=== PATIENT | female | born 1945 | race Caucasian/White ===

== ENCOUNTER 2021-03-26 16:27 | Outpatient (REF) | payer MEDICARE, SELFPAY ==
--- NOTE | ~2021-03-26 | XR_ITS ---
EXAMINATION: RIGHT HAND X-RAY CLINICAL INFORMATION: Trauma COMPARISON: None TECHNIQUE: 3 views right hand FINDINGS: There is a fracture through the base of the proximal phalanx of the fifth finger. There is a volar angulation of the proximal phalanx with respect to the base. No other fracture is seen. There is arthritis at the first CORRECTION joint with joint space narrowing and osteophyte formation. There is mild arthritis at the trapezoid trapezium scaphoid joints. Joint spaces are otherwise normal. There is soft tissue swelling adjacent to the fracture. XR/XR hand wrist RT IMPRESSION: Angulated fracture of the base of the proximal phalanx of the fifth finger.
== END 2021-03-26 16:28 | disposition home or self-care (01) ==
LOC: HO.HMGCX 16:27
PROVIDERS: PCP Internal Medicine; Visit Provider Nurse Practitioner Family
DX: S69.91XA Unspecified injury of right wrist, hand and finger(s), initial encounter (principal); X58.XXXA Exposure to other specified factors, initial encounter; Y93.9 Activity, unspecified; Y92.9 Unspecified place or not applicable; Y99.9 Unspecified external cause status
CPT/HCPCS: 73110; 73130

== ENCOUNTER 2021-04-06 09:39 | Outpatient (REF) | payer MEDICARE, SELFPAY ==
--- NOTE | ~2021-04-06 | XR_ITS ---
EXAMINATION: XR HAND, RIGHT CLINICAL INFORMATION: Fracture follow-up COMPARISON: Radiographs 03/26/2021 TECHNIQUE: PA, lateral, and oblique views of the right hand. FINDINGS: No significant change in the appearance or alignment of the angulated and displaced fracture of the base of the 5th proximal phalanx. 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 XR/XR hand RT min 3V IMPRESSION: No significant change in the appearance of the 5th proximal phalanx fracture.
== END 2021-04-06 09:40 | disposition home or self-care (01) ==
LOC: HO.XRAY 09:39
PROVIDERS: PCP Internal Medicine; Visit Provider Physician Assistant
DX: S62.601A Fracture of unspecified phalanx of left index finger, initial encounter for closed fracture (principal)
CPT/HCPCS: 73130; 99202

== ENCOUNTER 2021-04-10 07:35 | Day surgery (SDC) | payer MEDICARE, SELFPAY ==
[2021-04-10] VITALS (7 sets, daily range): BP systolic 122–164; BP diastolic 68–81; PULSE 60–77; RESP 16–18; TEMP 36.7–37; O2SAT 96–99; BMI 27.4
--- NOTE | ~2021-04-10 | FL_ITS ---
EXAMINATION: XR FLUOROSCOPY WITH IMAGES CLINICAL INFORMATION: Fracture fifth proximal phalanx. Follow-up. COMPARISON: Radiographs right hand 04/06/2021, 03/26/2021 TECHNIQUE: Fluoroscopy performed by Dr. Allison Odom. Fluoroscopy time: 0.8 minutes DAP: 22.35 mGycm2 Images: 5 FINDINGS: Fracture proximal aspect fifth proximal phalanx is reduced along with 2 metallic pins. Fracture fragments are in near-anatomic alignment. No dislocation or destructive process. Hardware intact. FL/FL guidance in OR IMPRESSION: Status post reduction fracture fifth proximal phalanx with fragments in near-anatomic alignment.
--- NOTE | 2021-04-10 11:20 | MHC.SHP ---
Pre-Procedural Eval Section B Chief Complaint: Right small finger proximal phalanx fracture Allergies: Allergies Allergy/AdvReac Type Severity Reaction Status Date / Time No Known Allergies Allergy Verified 04/10/21 11:08 Plan I have reviewed the history and physical and performed a pertinent physical examination on my patient. No changes have occurred unless specified.
--- NOTE | 2021-04-10 11:21 | W.PM.OPN ---
Operative Note Operative Note Date of Service: 04/10/21 Narrative: Operative Note Narrative: Preop diagnosis: 1. Right small finger proximal phalanx base fracture Postop diagnosis: Same Procedure: 1. Right small finger proximal phalanx base fracture closed reduction percutaneous pinning 2. Ulnar nerve block Surgeon: Allison Odom MD Anesthesia: General Findings: finger fracture Implants: 0.045 K-wires times 2 Tourniquet time: None EBL: Minimal Specimen: None Drains: None Complications: None Disposition: Brought to the recovery room in stable condition Plan: Follow-up in 10-14 days for a wound check, postop radiographs and for placement in a short-arm finger spica cast or splint Anticipate K-wire removal in 4 weeks based on interval bony healing Educate the patient that full fracture healing anticipated in approximately 8-12 weeks. Indications: The patient is 75 years old with right small finger proximal phalanx base fracture . The risks and benefits of operative treatment, including but not limited to risk of damage to blood vessels, nerves, tendons, infection, recurrence, delayed or nonunion of fracture, persistent pain or numbness, incomplete resolution of preoperative symptoms, or need for further surgery were discussed with the patient and they wished to proceed with surgery. Procedure: Once consent was obtained patient was brought back to the operating suite and placed in the operating table in a supine position. . Perioperative antibiotics and general anesthesia was administered by the anesthesia team. A tourniquet was applied to the proximal aspect of the right upper extremity and the limb was prepped and draped in a standard surgical fashion. Tourniquet was not inflated during the case. The FluoroScan was used during the case to assist with our fracture reduction and placement of all implants. A closed reduction was performed on the patient's right small finger proximal phalanx fracture. There is already some bony healing at the fracture site, but we were able to significantly improve the clinical alignment of the digit. I placed a 0.045 K-wire through the ulnar base of the right small finger proximal phalanx. This was then advanced across the fracture site and into the shaft. A 2nd 0.045 K-wire was similarly advanced through the radial base of the proximal phalanx, across the fracture site and into the shaft. Fracture alignment was assessed for both angular and rotational malalignment. Once satisfied with our fracture reduction and implant placement, the K-wires were bent and cut short and pin caps applied. Final fluoroscopic images were then obtained. The wounds were copiously irrigated with normal saline. An ulnar nerve block was then performed by infiltrating about the ulnar nerve at the wrist with some 1% lidocaine with epinephrine for postop pain control. A Sterile dressing and short volar splint extending to the forearm was applied. The patient appears to have tolerated the procedure well and with no complications. All digits were well vascularized at the conclusion of the case.
[2021-04-10] MEDS: ceFAZolin Sodium/Dextrose,Iso 2 GM/50 ML PIGGYBACK IV (11:52)
[2021-04-10] MEDS: Lactated Ringers 1,000 ML 50 ML IVCONT (12:00)
--- NOTE | 2021-04-10 13:27 | HO.ANESPROP2 ---
HPI - Anesthesia Eval Consult details Narrative: 75 yo female patient here for Right Closed Metacarpal ORIF vs ORIF of 5th proximal phalanx PMFSH Active Problems Active Problems: All Active Problems (Updated 04/10/21 @ 11:48 by Rosaline Hwang RN) Hand injury (Acute) Finger fracture, right (Acute) Fracture of fifth metacarpal bone of right hand (Acute) Past Medical History Medical History Depression GERD (gastroesophageal reflux disease) High blood pressure History of pulmonary embolism Hypothyroid Pneumonia Family History Family history of problems with anesthesia: No Surgical History Surgical History (Updated 04/10/21 @ 13:44 by Rica Mckeon) H/O colonoscopy History of back surgery History of Problems with Anesthesia: No Social History Social History (Updated 04/10/21 @ 13:45 by Rica Mckeon) Alcohol intake: current Patient Tobacco Use Status: Former Tobacco user Quit Date: 35 yrs ago Use of substances other than those prescribed or required for medical reasons: Yes Substance Use Type: Marijuana Substance Use Frequency: Weekly Last Used Substance: Days (ago) Are you DNR?: No Advance Directives: No Advance Directives Information Provided: Yes Current occupational status: retired Current occupation: rt hand Meds Allergies Allergy/AdvReac Type Severity Reaction Status Date / Time No Known Allergies Allergy Verified 04/10/21 11:08 Home Medications Medication Instructions Recorded Confirmed Last Taken Type amlodipine 5 mg tablet 5 mg PO BID 03/26/21 04/10/21 04:00 History fluocinonide 0.05 % topical cream appl TOPICAL 03/26/21 Unknown History levothyroxine 50 mcg tablet 50 mcg PO DAILY 03/26/21 Unknown History metoprolol succinate 100 mg 100 mg PO DAILY 03/26/21 Unknown History tablet,extended release 24 hr pantoprazole 40 mg tablet,delayed 40 mg PO DAILY 03/26/21 Unknown History release sertraline 50 mg tablet 50 mg PO DAILY 03/26/21 Unknown History Exam Exam Date and Time: April 10, 2021 1327 Height,Weight and Vital Signs: Height 5 ft 2 in Weight 68.039 kg Last Vital Signs Temp 98.1 F 04/10/21 11:24 Pulse 60 04/10/21 11:24 Resp 18 04/10/21 11:24 BP 164/79 H 04/10/21 11:24 Pulse Ox 97 04/10/21 11:24 Airway Mallampati Class: II (Torus palatinus) TM Dist: >3cm Neck ROM: Full Heart: RRR Lungs: CTAB Assessment and Plan Assessment Anesthesia Assessment: Anesthesia Plan Discussed and Chart Reviewed Final Anesthetic Review NPO: Yes ASA Class: II Final Preanesthetic Review: No Changes in Pt Med Stat, Meds/Allgs Chart Reviewed, Consent Obtained/Reviewed and Anes Risks/Benef Reviewed Patient Risk: Low Procedure Risk: Low Assessment/Block/Sedation in SS: Assess/Block/Sedation-SS Anesthetic Plan Anesthetic Plan: GA Disposition: Standard PACU
== END 2021-04-10 16:08 | disposition home or self-care (01) ==
PROVIDERS: PCP Internal Medicine; Visit Provider Orthopaedic Surgery
PROC: (CPT 26615; principal; 2021-04-10 12:30)
DX: S62.616A Displaced fracture of proximal phalanx of right little finger, initial encounter for closed fracture (principal); X50.1XXA Overexertion from prolonged static or awkward postures, initial encounter; Y93.9 Activity, unspecified; Y92.9 Unspecified place or not applicable; Y99.9 Unspecified external cause status
CPT/HCPCS: 26727; J0690; J1170; J2250; J2405; J3010

== ENCOUNTER 2021-04-23 08:59 | Outpatient (REF) | payer MEDICARE, SELFPAY ==
--- NOTE | ~2021-04-23 | XR_ITS ---
EXAMINATION: XR HAND, RIGHT CLINICAL INFORMATION: Pain in right hand. COMPARISON: Fracture base of proximal phalanx 1st digit. Status post ORIF. TECHNIQUE: 4 views of the right hand. FINDINGS: Proximal phalangeal fracture 5th digit has been reduced with 2 metallic pins in satisfactory alignment. No displacement or dislocation seen. The soft tissues are unremarkable. XR/XR hand RT min 3V IMPRESSION: Status post ORIF proximal phalanx proximal end 5th digit. No change compared to previous 04/10/2021 exam.
== END 2021-04-23 09:00 | disposition home or self-care (01) ==
LOC: HO.HOSX 08:59
PROVIDERS: Visit Provider Orthopaedic Surgery
DX: S62.616A Displaced fracture of proximal phalanx of right little finger, initial encounter for closed fracture (principal); X58.XXXA Exposure to other specified factors, initial encounter; Y93.9 Activity, unspecified; Y92.9 Unspecified place or not applicable; Y99.9 Unspecified external cause status; Z87.891 Personal history of nicotine dependence
CPT/HCPCS: 73130; 99212

== ENCOUNTER → 2021-04-24 10:46 | Outpatient (BNVA) | payer MEDICARE, SELFPAY | PROVIDERS: Visit Provider Physician Assistant ==

== ENCOUNTER 2021-05-09 10:19 | Outpatient (REF) | payer MEDICARE, SELFPAY ==
--- NOTE | ~2021-05-09 | XR_ITS ---
EXAMINATION: XR HAND, RIGHT CLINICAL INFORMATION: Right hand pain. COMPARISON: 04/23/2021 and studies dating back to 03/26/2021. TECHNIQUE: PA, lateral, and oblique views of the right hand. FINDINGS: There is osteopenia of visualized bones. There is no significant change in appearance of 2 pins traversing right 5th proximal phalanx fracture. There is degenerative joint disease seen involving the 1st carpometacarpal joint with narrowing of the joint space and marginal spurring and sclerosis. There is triscaphe joint degenerative change. XR/XR hand RT min 3V IMPRESSION: No significant change in appearance of a comminuted right 5th proximal phalanx fracture with [address] Significant degenerative change of the right wrist at the 1st carpometacarpal joint.
== END 2021-05-09 10:20 | disposition home or self-care (01) ==
LOC: HO.HOSX 10:19
PROVIDERS: Visit Provider Orthopaedic Surgery
DX: M79.641 Pain in right hand (principal); S62.616D Displaced fracture of proximal phalanx of right little finger, subsequent encounter for fracture with routine healing; X58.XXXD Exposure to other specified factors, subsequent encounter; I10 Essential (primary) hypertension; Z87.891 Personal history of nicotine dependence
CPT/HCPCS: 73130; 99212

== ENCOUNTER 2021-05-30 09:21 | Outpatient (REF) | payer MEDICARE, SELFPAY ==
--- NOTE | ~2021-05-30 | XR_ITS ---
EXAMINATION: XR HAND, RIGHT CLINICAL INFORMATION: Pain. COMPARISON: None TECHNIQUE: PA, lateral, and oblique views of the right hand. FINDINGS: There is loss of PIP, DIP, first carpometacarpal joint space without bony erosive changes. There is minimal periarticular spurring DIP joint second through fifth digits and first carpometacarpal joint. The MCP joints are preserved. No acute fracture or dislocation seen. There is mild osteopenia. The soft tissues are normal. XR/XR hand RT min 3V IMPRESSION: Degenerative arthritic changes right hand. There is no visible acute fracture or dislocation. There is mild osteopenia.
== END 2021-05-30 09:22 | disposition home or self-care (01) ==
LOC: HO.HOSX 09:21
PROVIDERS: Visit Provider Orthopaedic Surgery
DX: S62.616D Displaced fracture of proximal phalanx of right little finger, subsequent encounter for fracture with routine healing (principal)
CPT/HCPCS: 73130; 99212

== ENCOUNTER 2021-05-31 10:00 | Outpatient (RCR) | payer MEDICARE, SELFPAY | END 2021-08-02 09:05 | disposition home or self-care (01) | LOC: HO.OT 10:00 | PROVIDERS: Visit Provider Orthopaedic Surgery | DX: S62.616D Displaced fracture of proximal phalanx of right little finger, subsequent encounter for fracture with routine healing (principal) | CPT/HCPCS: 97110; 97165; 97760 ==

== ENCOUNTER 2023-07-28 11:40 | Outpatient (REF) | payer MEDICARE, SELFPAY ==
--- NOTE | ~2023-07-28 | XR_ITS ---
EXAMINATION: XR SINUSES CLINICAL INFORMATION: Sinusitis COMPARISON: None available. TECHNIQUE: 4 views of the facial sinuses FINDINGS: Slight opacification of the left maxillary sinus. Remaining facial sinuses appear patent without large opacification. Osseous structures are intact. Dental hardware is noted. Soft tissues are unremarkable. XR/XR sinus min 3V IMPRESSION: Slight opacification of the left maxillary sinus.
== END 2023-07-28 11:41 | disposition home or self-care (01) ==
LOC: HO.XRAY 11:40
PROVIDERS: PCP Internal Medicine; Visit Provider Otolaryngology
DX: J32.9 Chronic sinusitis, unspecified (principal)
CPT/HCPCS: 70220

== ENCOUNTER 2023-08-20 07:34 | Outpatient (REF) | payer MEDICARE, SELFPAY ==
--- NOTE | ~2023-08-20 | CT_ITS ---
CT SINUS WITHOUT CONTRAST HISTORY: Deviated septum TECHNIQUE: CT images of the paranasal sinuses were acquired without contrast. This CT examination was performed using dose optimization techniques as appropriate, variously including the following: *Automated exposure control *Adjustment of mA and/or kV according to patient size (this includes techniques or standardized protocols for targeted exams where dose is matched to indication/reason for exam; i.e. extremities or head) *Use of iterative reconstruction technique DLP: 86.91 mGy-cm COMPARISON: None available FINDINGS: NASAL CAVITY: Leftward nasal septal deviation. The nasal cavity is well aerated. The olfactory fossa are symmetric with Keros type III morphology. FRONTAL SINUS: LEFT: Clear with focally opacified frontal sinus drainage pathway superiorly. Anterior and posterior accessory frontal recess air cells are noted. RIGHT: Clear with focally opacified frontal sinus drainage pathway superiorly. Prominent agger nasi cell. MAXILLARY SINUS: LEFT: Mild mucosal disease with opacified sinus ostium and otherwise patent osteomeatal unit. RIGHT: Mild mucosal disease with focally opacified sinus ostium and otherwise patent ETHMOID AIR CELLS: LEFT: Mild patchy mucosal disease. RIGHT: Mild patchy mucosal disease. Lamina papyracea: Intact. Anterior ethmoid canals do not traverse through the ethmoid air cells. SPHENOID SINUS: LEFT: Trace mucosal disease with septation traversing the ostium. Patent sphenoethmoidal recess. RIGHT: Mild mucosal disease with opacified ostium patent sphenoethmoidal recess. The sphenoid septum does not insert onto the carotid canal. Sphenoethmoidal (Onodi) cell: None. OTHER: Prominent torus palatini. Lens extractions. The carotid canals are covered by bone. The temporomandibular joints are normal. The mastoid air cells and middle ear cavities are well aerated. Partially imaged moderate global cerebral volume loss. Calcific plaque along the carotid siphons. Degenerative changes across the anterior atlantodental interval with mild retrodental ligamentous thickening/pannus. CT/CT sinus wo IV con IMPRESSION: Leftward nasal septal deviation. Mild scattered paranasal sinus mucosal disease, most pronounced in the maxillary sinuses with opacified bilateral sinus ostia. No air-fluid levels.
== END 2023-08-20 07:35 | disposition home or self-care (01) ==
LOC: HO.CT 07:34
PROVIDERS: Visit Provider Otolaryngology
DX: J84.2 Lymphoid interstitial pneumonia (principal)
CPT/HCPCS: 70486

== ENCOUNTER 2025-06-20 09:52 | Outpatient (AMB) | payer MEDICARE, SELFPAY ==
--- OUTSIDE RECORDS SUMMARY | 2025-06-20 10:38 | XMS_ITS | Clinical Summary ---
Author Organization [facility] Address [address] [place] [address] Phone Care Team Providers Care Operations Support Representative Name Role Phone Yemi Faith MD Primary Care Provider Allergies No known active allergies Medications diphenhydrAMINE (BenadryL) 25 mg capsule Take by mouth as needed Active amLODIPine (NORVASC) 5 mg tablet Take 1 tablet (5 mg total) by mouth 2 (two) times a day. 09/15/2023 Active aspirin 81 mg EC tablet Take 1 tablet (81 mg total) by mouth 1 (one) time each day. 09/15/2023 Active atorvastatin (LIPITOR) 80 mg tablet Take 1 tablet (80 mg total) by mouth 1 (one) time each day. 07/09/2024 Active ipratropium-albu teroL (Combivent Respimat) 20-100 mcg/actuation inhaler Inhale 1 puff by mouth 4 (four) times a day if needed (dyspnea). 07/01/2024 Active levothyroxine sodium (TIROSINT) 50 mcg capsule Take by mouth Active metoprolol succinate (TOPROL-XL) 100 mg 24 hr tablet Take 1 tablet (100 mg total) by mouth 1 (one) time each day. Active pantoprazole (PROTONIX) 40 mg EC tablet Take 1 tablet (40 mg total) by mouth 1 (one) time each day. Active sertraline (ZOLOFT) 100 mg tablet Take 1 tablet (100 mg total) by mouth 1 (one) time each day. Active Active Problems Problem Noted Date Diagnosed Date Osteoporosis 08/16/2024 Diastolic dysfunction 06/30/2024 Overview (08/16/2024): Last Assessment & Plan: The patient has a history of diastolic dysfunction. Echocardiogram done in November 2023 showed a normal LVEF, grade 2 LV diastolic dysfunction, and mild pulmonary hypertension with a pulmonary artery systolic pressure of 41 mmHg. The patient denies any heart failure symptoms. She denies any weight gain, lower extremity edema, orthopnea, PND, or dyspnea. Therefore, no need for diuretic therapy at this point. Paraesophageal hernia 06/30/2024 Overview (08/16/2024): Last Assessment & Plan: The patient was incidentally noted to have a moderate to large type III paraesophageal hernia on her cardiac CT scan. The patient tells me that her primary care physician and her geophysical manager ([facility]) already know about her paraesophageal hernia. The patient will continue to follow with her primary care physician and geophysical manager regarding the management of her paraesophageal hernia. PFO (patent foramen ovale) 06/30/2024 Overview (08/16/2024): Last Assessment & Plan: The patient was noted to have a possible PFO on cardiac CT scan done in January 2024. A PFO was not noted on the patient's prior echocardiogram. The patient does not have any history of TIA or CVA. She is already on antiplatelet therapy with aspirin 81 mg orally daily. No further evaluation is needed for this incidentally noted PFO. Pulmonary hypertension (CMS/HCC V24, CMS/HCC V28 ) 12/30/2023 Overview (08/16/2024): Last Assessment & Plan: The patient was found to have mild pulmonary hypertension on her echocardiogram done in November 2023. She was noted to have a pulmonary artery systolic pressure of 41 mmHg. Previous PFT from October 2023 did not show any evidence of obstructive lung disease. However, she did have any slight improvement in the FEV1 post bronchodilators which could represent some component of reactive airway disease. Certainly, her mild pulmonary hypertension could be secondary to her underlying diastolic dysfunction. However, given her history of former smoker and her history of a pulmonary embolism in the past, we also need to consider an intrinsic pulmonary component of her pulmonary hypertension. As such, will refer the patient for an evaluation with the pulmonology service. Dyspnea 09/15/2023 Overview (08/16/2024): Last Assessment & Plan: The patient has been having symptoms of chronic exertional dyspnea. On today's visit, she states that her symptoms of dyspnea are slightly better when compared to her last visit to our office. However, her symptoms are still present. She denies any chest pain at rest or with exertion. Stress echocardiogram was submaximal and therefore the patient was referred for a cardiac CT scan. Cardiac CT scan scheduled for January 2024. On the other hand, she was noted to have mild pulmonary hypertension on echocardiography. She does have a history of a PE in the past as well as a history of former smoker. Will refer the patient for an evaluation with the pulmonology department. CAD (coronary artery disease) 09/10/2023 Overview (08/16/2024): Last Assessment & Plan: The patient has a history of coronary artery disease. Cardiac CT scan done in January 2024 showed a normal left main, normal circumflex, a less than 50% stenosis in the LAD with abnormal FFR, and a less than 25% stenosis in the RCA with a normal FFR. The patient currently denies any anginal symptoms. As such, we will continue her current therapy with amlodipine, aspirin, atorvastatin, and metoprolol. The patient has a history of coronary artery disease. During today's visit, we reviewed the warning signs that should prompt an urgent medical evaluation. Specifically, we discussed that the patient should go to the hospital if she develops any chest discomfort at rest or worsening chest discomfort with exertion. HLD (hyperlipidemia) 09/10/2023 Overview (08/16/2024): MIXED Last Assessment & Plan: The patient has a history of hyperlipidemia. The patient is currently on atorvastatin 40 mg orally daily. We will order a new lipid panel to evaluate the patient's current lipid control and determine if any adjustment are needed in the lipid lowering therapy. HTN (hypertension) 09/10/2023 Overview (08/16/2024): Last Assessment & Plan: The patient has a history of arterial hypertension. The patient's blood pressure today was noted to be well controlled. We'll continue the current antihypertensive medication regimen. Encounters Date Type Department Care Team Description 03/25/2025 8:45 AM EDT Office Visit Pulmonolgy - [place] [facility] [address] [place] [address] Belkis Pulido MD SIXTO on CPAP (Primary Dx); Chronic bronchitis, unspecified chronic bronchitis type (CMS/HCC V24, CMS/HCC V28); Pulmonary embolism, other, unspecified chronicity, unspecified whether acute cor pulmonale present (CMS/HCC V24, CMS/[facility] V28); Pulmonary hypertension (CMS/[facility] V24, CMS/[facility] V28); Ex-smoker from Last 3 Months Surgical History Surgery Date Site/Laterality Comments BACK SURGERY 10/15/2013; 04/10/2015 PROCEDURE: HISTORICAL BACK SURGERY; COMMENT: L4-5 S1 fusion; L3-4 Fusion OTHER SURGICAL HISTORY 2004 Bilateral PROCEDURE: BREAST PROTHESIS; COMMENT: Breast implants ENDOMETRIAL ABLATION 03/1999 PROCEDURE: OK ENDOMETRIAL ABLTJ THERMAL W/O HYSTEROSCOPIC GUID Medical History Medical History Date Comments Osteoporosis DX:Osteoporosis Hypothyroid DX:Hypothyroid Hypertension DX:Hypertension Family History Medical History Relation Name Comments Hypertension Brother 1 Diabetes Brother 2 Hypertension Father Diabetes Mother Hypertension Mother Relation Name Status Comments Brother 1 Brother 2 Brother 3 Alive Father Mother Social History Tobacco Use Types Packs/Day Years Used Date Smoking Tobacco: Former Cigarettes Q uit: 11/09/1985 Smokeless Tobacco: Never Tobacco Cessation:Counseling Given: Not Answered Alcohol Use Standard Drinks/Week Comments Yes 0 (1 standard drink = 0.6 oz pur e alcohol) Comments Unknown Sex and Gender Information Value Date Recorded Sex Assigned at Not on file Legal Sex Female 4:43 AM EST Gender Identity Not on file Sexual Orientation Not on file Obstetrics History Last Filed Vital Signs Vital Sign Reading Time Taken Comments Blood Pressure 151/81 03/25/2025 8:34 AM EDT Pulse 93 03/25/2025 8:34 AM EDT Temperature 35.6 C (96 F) 03/25/2025 8:34 AM EDT Respiratory Rate 16 03/25/2025 8:34 AM EDT Oxygen Saturation 97% 03/25/2025 8:34 AM EDT Inhaled Oxygen Concentration - - Weight 63 kg (138 lb 12.8 oz) 03/25/2025 8:34 AM EDT Height 157.5 cm (5' 2 ) 03/25/2025 8:34 AM EDT Body Mass Index 25.39 03/25/2025 8:34 AM EDT Plan of Treatment Upcoming Encounters Date Type Department Care Team (Late st Contact Info) Description 10/03/2025 8:30 AM EST Office Visit Pulmonolgy - [place] [address] [facility] [address] [place] [phone] Belkis Pulido MD [address] [facility] [address] [place] [address] Health Maintenance Due Date Last Done Comments DTaP,Tdap,and Td Vaccines (1 - Tdap) 1964 Cholesterol Screening (Lipid Panel) 12/02/2023 Falls Risk Assessment 12/02/2023 Hepatitis C Screening 12/02/2023 Medicare Annual Wellness Visit 12/02/2023 Osteoporosis Screening (Bone Density Screening) 12/02/2023 Social Influencers of Health Screening 12/02/2023 Hypertension/CHF/CAD Annual BMP Blood Test 12/05/2023 Depression Screening 11/03/2024 COVID-19 Vaccine ( season) 2025 07/07/2024, 07/22/2023, 08/30/2022, Additional history exists Influenza Vaccine (#1) 2025 , 07/22/2023, 06/23/2022, Additional history exists Zoster Vaccines Completed 07/13/2018, 04/19/2018 Pneumococcal Vaccine: 50+ Years Completed 06/04/2021, 09/09/2018 RSV Immunization Adult Patients Completed 10/23/2023 HIB Vaccines Aged Out No longer eligi ble based on patient's age to complete this topic HPV Vaccines Aged Out No longer eligi ble based on patient's age to complete this topic Hepatitis A Vaccines Aged Out No long er eligible based on patient's age to complete this topic Hepatitis B Vaccines Aged Out No long er eligible based on patient's age to complete this topic IPV Vaccines Aged Out No longer eligi ble based on patient's age to complete this topic MMR Vaccines Aged Out No longer eligi ble based on patient's age to complete this topic Meningococcal ACWY Vaccine Aged Out N o longer eligible based on patient's age to complete this topic Meningococcal B Vaccine Aged Out No l onger eligible based on patient's age to complete this topic RSV Immunization Patients Under 20 months Aged Out No longer eligible based on patient's age to complete this topic Varicella Vaccines Aged Out No longer eligible based on patient's age to complete this topic Procedures Procedure Name Priority Date/Time Associated Diagnosis Comments OVERNIGHT PULSE OXIMETRY Routine 05/02/2025 12:00 AM EDT SIXTO on CPAP from Last 3 Months Results * Pulse oximetry, overnight (05/02/2025 12:00 AM EDT) Belkis Pulido MD RESPIRATORY CARE ORDERABLES Edit ed Result - Final from Last 3 Months Insurance MEDICARE [employer] Care Teams Operations Support Representative Relationship Specialty Start Date End Date Yemi Faith MD [address] [place] [address] PCP - General Internal Medicine 01/03/17
--- OUTSIDE RECORDS SUMMARY | 2025-06-20 10:38 | XMS_ITS | Clinical Summary ---
Author Organization [facility] Address [address] [place] [address] Care Team Providers Care Fine Wire Drawer Name Role Phone Unavailable Primary Care Provider Unavailabl e Social History Tobacco Use Types Packs/Day Years Used Date Smoking Tobacco: Never Assessed Comments Unknown Sex and Gender Information Value Date Recorded Sex Assigned at Not on file Legal Sex Female 2:37 PM EDT Gender Identity Not on file Sexual Orientation Not on file Plan of Treatment Health Maintenance Due Date Last Done Comments Hepatitis C Virus Screening 1945 DTaP/Tdap/Td Vaccines (1 - Tdap) 1966 Pneumococcal Vaccines 50+ (1 of 1 - PCV) 1997 Zoster (Shingles) Vaccine (1 of 2) 1997 RSV Vaccine 60 years and old er and Patients (1 - 1-dose 75+ series) 2022 COVID-19 Vaccine ( - 2023-2 5 season) 2024 Hepatitis B Vaccines Aged Out No long er eligible based on patient's age to complete this topic
== END 2025-06-20 10:14 | disposition home or self-care (01) ==
LOC: HO.HMGAL 09:52
PROVIDERS: PCP Internal Medicine; Visit Provider Registered Nurse Emergency
DX: J30.89 Other allergic rhinitis (principal)
CPT/HCPCS: 95117; 95165

== ENCOUNTER 2025-06-29 09:16 | Outpatient (AMB) | payer MEDICARE, SELFPAY ==
--- OUTSIDE RECORDS SUMMARY | 2025-06-29 09:44 | XMS_ITS | Clinical Summary ---
Author Organization [facility] Address [address] [place] [address] Care Team Providers Care Store Grocery Merchandiser Name Role Phone Unavailable Primary Care Provider [...]
--- OUTSIDE RECORDS SUMMARY | 2025-06-29 09:45 | XMS_ITS | Clinical Summary ---
Author Organization 175 [facility] Address 175 [place] [address] Phone Care Team Providers Care Certified Wellness Program Manager Name Role Phone Yemi Faith MD Primary Care Provider [phone] Allergies No known active allergies Medications diphenhydrAMINE [...] that her primary care physician and her lead cargoman ([facility]) already know about her paraesophageal hernia. The patient will continue to follow with her primary care physician and lead cargoman regarding the management of her paraesophageal hernia. [...] We'll continue the current antihypertensive medication regimen. Surgical History Surgery Date Site/Laterality Comments BACK SURGERY 10/15/2013; 04/10/2015 PROCEDURE: HISTORICAL BACK SURGERY; COMMENT: L4-5 S1 fusion; L3-4 Fusion OTHER SURGICAL HISTORY 2004 Bilateral PROCEDURE: BREAST PROTHESIS; COMMENT: Breast implants ENDOMETRIAL ABLATION 03/1999 PROCEDURE: [place] ENDOMETRIAL ABLTJ THERMAL W/O HYSTEROSCOPIC GUID Medical [...] Description 10/03/2025 8:30 AM EST Office Visit Pulmonol - [place] 175 [facility] [address] [place] [id number] Belkis Pulido MD [facility] [place] [address] Health Maintenance Due Date Last Done Comments [...] Final from Last 3 Months Insurance MEDICARE [facility] Care Teams Certified Wellness Program Manager Relationship Specialty Start Date End Date Yemi Faith MD [address] PCP - General Internal Medicine 01/03/17
== END 2025-06-29 09:19 | disposition home or self-care (01) ==
LOC: HO.HMGAL 09:16
PROVIDERS: PCP Internal Medicine; Visit Provider Registered Nurse Emergency
DX: J30.89 Other allergic rhinitis (principal)
CPT/HCPCS: 95117; 95165

== ENCOUNTER 2025-07-06 09:22 | Outpatient (AMB) | payer MEDICARE, SELFPAY ==
--- OUTSIDE RECORDS SUMMARY | 2025-07-06 10:06 | XMS_ITS | Clinical Summary ---
Author Organization 175 [facility] Address 175 [place] [address] Phone Care Team Providers Care Woodwind Reeds Cutter Name Role Phone Yemi Faith MD Primary Care Provider [phone] Allergies No known active allergies Medications diphenhydrAMINE [...] that her primary care physician and her medical support specialist ([facility]) already know about her paraesophageal hernia. The patient will continue to follow with her primary care physician and medical support specialist regarding the management of her paraesophageal hernia. [...] 8:30 AM EST Office Visit Pulmonol - [place] 175 [facility] [address] [place] [address] Belkis Pulido MD [address] [place] [phone] Health Maintenance Due Date Last Done Comments [...] Final from Last 3 Months Insurance MEDICARE [facility] Care Teams Woodwind Reeds Cutter Relationship Specialty Start Date End Date Yemi Faith MD [address] PCP - General Internal Medicine 01/03/17
--- OUTSIDE RECORDS SUMMARY | 2025-07-06 10:06 | XMS_ITS | Clinical Summary ---
Author Organization [facility] Address [address] [place] [address] Care Team Providers Care Manager Power Name Role Phone Unavailable Primary Care Provider Unavailabl e Social History Tobacco Use Types Packs/Day Years Used Date Smoking Tobacco: Never Assessed Comments Unknown Sex and Gender Information Value Date Recorded Sex Assigned at Not on file Legal Sex Female 2:37 PM EDT Gender Identity Not on file Sexual Orientation Not on file Plan of Treatment Health Maintenance Due Date Last Done Comments Advance Care Planning 1945 Hepatitis C Virus Screening 1945 DTaP/Tdap/Td Vaccines (1 - Tdap) 1966 Pneumococcal Vaccines 50+ (1 of 1 - PCV) 1997 Zoster (Shingles) Vaccine (1 of 2) 1997 RSV Vaccine 60 years and old er and Patients (1 - 1-dose 75+ series) 2022 COVID-19 Vaccine (2023-2 5 season) 2024 Hepatitis B Vaccines Aged Out No long er eligible based on patient's age to complete this topic
== END 2025-07-06 09:28 | disposition home or self-care (01) ==
LOC: HO.HMGAL 09:22
PROVIDERS: PCP Internal Medicine; Visit Provider Registered Nurse Emergency
DX: J30.89 Other allergic rhinitis (principal)
CPT/HCPCS: 95117; 95165

== ENCOUNTER 2025-07-13 11:07 | Outpatient (AMB) | payer MEDICARE, SELFPAY ==
--- OUTSIDE RECORDS SUMMARY | 2025-07-13 14:13 | XMS_ITS | Clinical Summary ---
Author Organization 175 [facility] Address 175 [place] [address] Phone Care Team Providers Care Extension Worker Name Role Phone Yemi Faith MD Primary Care Provider [phone] Allergies No known active allergies Medications diphenhydrAMINE [...] that her primary care physician and her environmental field technician ([facility]) already know about her paraesophageal hernia. The patient will continue to follow with her primary care physician and environmental field technician regarding the management of her paraesophageal hernia. [...] COMMENT: Breast implants ENDOMETRIAL ABLATION 03/1999 PROCEDURE: [place] ENDOMETRIAL ABLTJ THERMAL W/O HYSTEROSCOPIC GUID Medical [...] 8:30 AM EST Office Visit Pulmonol - [place] 175 [facility] [address] [place] [address] Belkis Pulido MD [address] [place] [address] [address] [place] [address] Health Maintenance Due Date Last Done Comments [...] Final from Last 3 Months Insurance MEDICARE [facility] Care Teams Extension Worker Relationship Specialty Start Date End Date Yemi Faith MD [address] PCP - General Internal Medicine 01/03/17
--- OUTSIDE RECORDS SUMMARY | 2025-07-13 14:13 | XMS_ITS | Clinical Summary ---
Author Organization [facility] Address [address] [place] [address] Care Team Providers Care Chicken Hanger Name Role Phone Unavailable Primary Care Provider [...]
== END 2025-07-13 11:09 | disposition home or self-care (01) ==
LOC: HO.HMGAL 11:07
PROVIDERS: PCP Internal Medicine; Visit Provider Registered Nurse Emergency
DX: J30.89 Other allergic rhinitis (principal)
CPT/HCPCS: 95117; 95165

== ENCOUNTER 2025-07-20 10:59 | Outpatient (AMB) | payer MEDICARE, SELFPAY ==
--- OUTSIDE RECORDS SUMMARY | 2025-07-20 14:06 | XMS_ITS | Clinical Summary ---
Author Organization [facility] Address [address] [place] [address] Care Team Providers Care Corporate Communications Manager Name Role Phone Unavailable Primary Care Provider [...] series) 2022 COVID-19 Vaccine (2023-2 5 season) 2025 Hepatitis B Vaccines Aged Out No long er eligible based on patient's age to complete this topic
--- OUTSIDE RECORDS SUMMARY | 2025-07-20 14:06 | XMS_ITS | Clinical Summary ---
Author Organization 175 [facility] Address [address] [place] [address] Phone Care Team Providers Care Instantizer Operator Name Role Phone Yemi Faith MD Primary Care Provider [phone] Allergies No known active allergies Medications diphenhydrAMINE [...] that her primary care physician and her vice president & general manager [employer] [place] ([facility]) already know about her paraesophageal hernia. The patient will continue to follow with her primary care physician and vice president & general manager [employer] [place] regarding the management of her paraesophageal hernia. [...] COMMENT: Breast implants ENDOMETRIAL ABLATION 03/1999 PROCEDURE: [place] ENDOMETRIAL ABLTJ THERMAL W/O HYSTEROSCOPIC GUID Medical [...] 8:30 AM EST Office Visit Pulmonol - [place] 175 [facility] [address] [place] [address] Belkis Pulido MD [address] [place] [address] [address] [place] [address] Health Maintenance Due Date Last Done Comments [...] Final from Last 3 Months Insurance MEDICARE [facility] Care Teams Instantizer Operator Relationship Specialty Start Date End Date Yemi Faith MD [address] PCP - General Internal Medicine 01/03/17
== END 2025-07-20 11:07 | disposition home or self-care (01) ==
LOC: HO.HMGAL 10:59
PROVIDERS: PCP Internal Medicine; Visit Provider Registered Nurse Emergency
DX: J30.89 Other allergic rhinitis (principal)
CPT/HCPCS: 95117; 95165

== ENCOUNTER 2025-07-27 10:26 | Outpatient (AMB) | payer MEDICARE, SELFPAY ==
--- OUTSIDE RECORDS SUMMARY | 2025-07-27 12:58 | XMS_ITS | Clinical Summary ---
Author Organization [facility] Address [address] [place] [address] Care Team Providers Care Generator Switchboard Operator Name Role Phone Unavailable Primary Care Provider [...]
--- OUTSIDE RECORDS SUMMARY | 2025-07-27 12:58 | XMS_ITS | Clinical Summary ---
Author Organization 175 [facility] Address [address] [place] [address] Phone Care Team Providers Care Nurse Research Name Role Phone Yemi Faith MD Primary Care Provider [phone] Allergies No known active allergies Medications diphenhydrAMINE [...] that her primary care physician and her radio board operator ([facility]) already know about her paraesophageal hernia. The patient will continue to follow with her primary care physician and radio board operator regarding the management of her paraesophageal hernia. [...] COMMENT: Breast implants ENDOMETRIAL ABLATION 03/1999 PROCEDURE: [place] ENDOMETRIAL ABLTJ THERMAL W/O HYSTEROSCOPIC GUID Medical [...] Description 10/03/2025 8:30 AM EST Office Visit Pulmonology - [address] [place] [address] Belkis Pulido MD [address] [place] [address] [address] [place] [address] Health Maintenance Due Date Last Done Comments [...] Final from Last 3 Months Insurance MEDICARE [facility] Care Teams Nurse Research Relationship Specialty Start Date End Date Yemi Faith MD [address] PCP - General Internal Medicine 01/03/17
== END 2025-07-27 10:27 | disposition home or self-care (01) ==
LOC: HO.HMGAL 10:26
PROVIDERS: PCP Internal Medicine; Visit Provider Registered Nurse Emergency
DX: J30.89 Other allergic rhinitis (principal)
CPT/HCPCS: 95117; 95165

== ENCOUNTER 2025-08-10 09:48 | Outpatient (AMB) | payer MEDICARE, SELFPAY | END 2025-08-10 10:24 | disposition home or self-care (01) | LOC: HO.HMGAL 09:48 | PROVIDERS: PCP Internal Medicine; Visit Provider Registered Nurse Emergency | DX: J30.89 Other allergic rhinitis (principal) | CPT/HCPCS: 95117; 95165 ==

== ENCOUNTER 2025-08-17 11:30 | Outpatient (AMB) | payer MEDICARE, SELFPAY | END 2025-08-17 11:31 | disposition home or self-care (01) | LOC: HO.HMGAL 11:30 | PROVIDERS: PCP Internal Medicine; Visit Provider Registered Nurse Emergency | DX: J30.89 Other allergic rhinitis (principal) | CPT/HCPCS: 95117; 95165 ==

== ENCOUNTER 2025-08-22 08:39 | Outpatient (AMB) | payer MEDICARE, SELFPAY | END 2025-08-22 08:39 | disposition home or self-care (01) | LOC: HO.HMGAL 08:39 | PROVIDERS: PCP Internal Medicine; Visit Provider Registered Nurse Emergency | DX: J30.89 Other allergic rhinitis (principal) | CPT/HCPCS: 95117; 95165 ==

== ENCOUNTER 2025-08-31 10:28 | Outpatient (AMB) | payer MEDICARE, SELFPAY ==
--- OUTSIDE RECORDS SUMMARY | 2025-08-31 12:59 | XMS_ITS | Clinical Summary ---
Author Organization [facility] Address [address] [place] [address] Care Team Providers Care Cheese Packer Name Role Phone Unavailable Primary Care Provider [...] Vaccine (1 of 2) 1997 RSV Vaccine 50 years and old er and Patients (1 - 1-dose 75+ series) 2022 COVID-19 Vaccine (2023-2 5 season) 2025 Hepatitis B Vaccines Aged Out No long er eligible based on patient's age to complete this topic
--- OUTSIDE RECORDS SUMMARY | 2025-08-31 12:59 | XMS_ITS | Clinical Summary ---
Author Organization 175 [facility] Address 175 [place] [address] Phone Care Team Providers Care Taxation Consultant Name Role Phone Yemi Faith MD Primary Care Provider [phone] Allergies No known active allergies Medications diphenhydrAMINE [...] that her primary care physician and her prop drawer ([facility]) already know about her paraesophageal hernia. The patient will continue to follow with her primary care physician and prop drawer regarding the management of her paraesophageal hernia. [...] Encounters Date Type Department Care Team Description 08/16/2025 Telephone Pulmonology - [address] [place] [address] Belkis Pulido MD from Last 3 Months Surgical History Surgery Date Site/Laterality Comments BACK SURGERY 10/15/2013; 04/10/2015 PROCEDURE: HISTORICAL BACK SURGERY; COMMENT: L4-5 S1 fusion; L3-4 Fusion OTHER SURGICAL HISTORY 2004 Bilateral PROCEDURE: BREAST PROTHESIS; COMMENT: Breast implants ENDOMETRIAL ABLATION 03/1999 PROCEDURE: [place] ENDOMETRIAL ABLTJ THERMAL W/O HYSTEROSCOPIC GUID Medical [...] Upcoming Encounters Date Type Department Care Team ([facility] st Contact Info) Description 10/03/2025 8:30 AM EST Office Visit Pulmonology - [address] [place] [address] Belkis Pulido MD [address] [place] [phone] Health Maintenance Due Date Last Done Comments [...] on patient's age to complete this topic Insurance MEDICARE [facility] Care Teams Taxation Consultant Relationship Specialty Start Date End Date Yemi Faith MD [address] PCP - General Internal Medicine 01/03/17
== END 2025-08-31 10:29 | disposition home or self-care (01) ==
LOC: HO.HMGAL 10:28
PROVIDERS: PCP Internal Medicine; Visit Provider Registered Nurse Emergency
DX: J30.89 Other allergic rhinitis (principal)
CPT/HCPCS: 95117; 95165

== ENCOUNTER 2025-09-07 10:25 | Outpatient (AMB) | payer MEDICARE, SELFPAY ==
--- OUTSIDE RECORDS SUMMARY | 2025-09-07 12:08 | XMS_ITS | Clinical Summary ---
Author Organization 175 [facility] Address [address] [place] [address] Phone Care Team Providers Care Applications Engineer Manufacturing Name Role Phone Yemi Faith MD Primary Care Provider [phone] Allergies No known active allergies Medications diphenhydrAMINE [...] that her primary care physician and her sign carpenter ([facility]) already know about her paraesophageal hernia. The patient will continue to follow with her primary care physician and sign carpenter regarding the management of her paraesophageal hernia. [...] Care Team Description 08/16/2025 Telephone Pulmonology - [address] [place] [address] Belkis Pulido MD from Last 3 Months Surgical History Surgery Date Site/Laterality Comments BACK SURGERY 10/15/2013; 04/10/2015 PROCEDURE: HISTORICAL BACK SURGERY; COMMENT: L4-5 S1 fusion; L3-4 Fusion OTHER SURGICAL HISTORY 2004 Bilateral PROCEDURE: BREAST PROTHESIS; COMMENT: Breast implants ENDOMETRIAL ABLATION 03/1999 PROCEDURE: [place] ENDOMETRIAL ABLTJ THERMAL W/O HYSTEROSCOPIC GUID Medical [...] Upcoming Encounters Date Type Department Care Team ([facility] st Contact Info) Description 10/03/2025 8:30 AM EST Office Visit Pulmonology - [address] [place] [address] Beklis Pulido MD [address] [place] [phone] Health Maintenance Due Date Last Done [...] age to complete this topic Insurance MEDICARE [facility] Care Teams Applications Engineer Manufacturing Relationship Specialty Start Date End Date Yemi Faith MD [address] PCP - General Internal Medicine 01/03/17
== END 2025-09-07 10:26 | disposition home or self-care (01) ==
LOC: HO.HMGAL 10:25
PROVIDERS: PCP Internal Medicine; Visit Provider Registered Nurse Emergency
DX: J30.89 Other allergic rhinitis (principal)
CPT/HCPCS: 95117; 95165

== ENCOUNTER 2025-09-14 11:27 | Outpatient (AMB) | payer MEDICARE, SELFPAY ==
--- OUTSIDE RECORDS SUMMARY | 2025-09-14 14:15 | XMS_ITS | Clinical Summary ---
Author Organization 175 [facility] Address 175 [place] [address] Phone Care Team Providers Care Visual And Stock Associate Name Role Phone Yemi Faith MD Primary Care Provider [phone] Allergies No known active allergies Medications diphenhydrAMINE [...] that her primary care physician and her glass mechanic ([facility]) already know about her paraesophageal hernia. The patient will continue to follow with her primary care physician and glass mechanic regarding the management of her paraesophageal hernia. [...] Care Team Description 08/16/2025 Telephone Pulmonology - [address] [place] [address] Belkis Pulido MD from Last 3 Months Surgical History Surgery Date Site/Laterality Comments BACK SURGERY 10/15/2013; 04/10/2015 PROCEDURE: HISTORICAL BACK SURGERY; COMMENT: L4-5 S1 fusion; L3-4 Fusion OTHER SURGICAL HISTORY 2004 Bilateral PROCEDURE: BREAST PROTHESIS; COMMENT: Breast implants ENDOMETRIAL ABLATION 03/1999 PROCEDURE: [place] ENDOMETRIAL ABLTJ THERMAL W/O HYSTEROSCOPIC GUID Medical History Medical History Date Comments Osteoporosis DX:Osteoporosis Hypothyroid DX:Hypothyroid Hypertension DX:Hypertension Family History Medical History Relation Name Comments Hypertension Brother 1 Diabetes Brother 2 Hypertension Father Diabetes Mother Hypertension Mother Relation Name Status Comments Brother 1 Brother 2 Brother 3 Alive Father Mother Social History Tobacco Use Types Packs/Day Years Used Date Smoking Tobacco: Former Cigarettes 0 Q uit: 11/09/1985 Smokeless Tobacco: Never Tobacco [...] 8:30 AM EST Office Visit Pulmonology - [address] [place] [address] Belkis Pulido MD [facility] [place] [address] Health Maintenance Due Date Last Done [...] age to complete this topic Insurance MEDICARE [facility] Care Teams Visual And Stock Associate Relationship Specialty Start Date End Date Yemi Faith MD [address] PCP - General Internal Medicine 01/03/17
== END 2025-09-14 11:29 | disposition home or self-care (01) ==
LOC: HO.HMGAL 11:27
PROVIDERS: PCP Internal Medicine; Visit Provider Registered Nurse Emergency
DX: J30.89 Other allergic rhinitis (principal)
CPT/HCPCS: 95117; 95165

== ENCOUNTER 2025-09-21 11:10 | Outpatient (AMB) | payer MEDICARE, SELFPAY ==
--- OUTSIDE RECORDS SUMMARY | 2025-09-21 22:01 | XMS_ITS | Clinical Summary ---
Author Organization 175 [facility] Address 175 [place] [address] Phone Care Team Providers Care Girl Friday Name Role Phone Yemi Faith MD Primary Care Provider [phone] Allergies No known active allergies Medications diphenhydrAMINE [...] that her primary care physician and her workday consultant ([facility]) already know about her paraesophageal hernia. The patient will continue to follow with her primary care physician and workday consultant regarding the management of her paraesophageal hernia. [...] Care Team Description 08/16/2025 Telephone Pulmonology - [address] [place] [address] Belkis Pulido MD from Last 3 Months Surgical History Surgery Date Site/Laterality Comments BACK SURGERY 10/15/2013; 04/10/2015 PROCEDURE: HISTORICAL BACK SURGERY; COMMENT: L4-5 S1 fusion; L3-4 Fusion OTHER SURGICAL HISTORY 2004 Bilateral PROCEDURE: BREAST PROTHESIS; COMMENT: Breast implants ENDOMETRIAL ABLATION 03/1999 PROCEDURE: [place] ENDOMETRIAL ABLTJ THERMAL W/O HYSTEROSCOPIC GUID Medical [...] 8:30 AM EST Office Visit Pulmonology - [address] [place] [address] Belkis Pulido MD [facility] [place] [address] Health Maintenance Due Date Last [...] age to complete this topic Insurance MEDICARE [facility] Care Teams Girl Friday Relationship Specialty Start Date End Date Yemi Faith MD [address] PCP - General Internal Medicine 01/03/17
== END 2025-09-21 11:17 | disposition home or self-care (01) ==
LOC: HO.HMGAL 11:10
PROVIDERS: PCP Internal Medicine; Visit Provider Registered Nurse Emergency
DX: J30.89 Other allergic rhinitis (principal)
CPT/HCPCS: 95117; 95165

== ENCOUNTER 2025-09-28 09:16 | Outpatient (AMB) | payer MEDICARE, SELFPAY ==
--- OUTSIDE RECORDS SUMMARY | 2025-09-28 10:09 | XMS_ITS | Clinical Summary ---
Author Organization [address] [facility] Address 175 [place] [address] Phone Care Team Providers Care Food Beverage Server Name Role Phone Yemi Faith MD Primary Care Provider [phone] Allergies No known active allergies Medications diphenhydrAMINE [...] that her primary care physician and her medicare biller ([facility]) already know about her paraesophageal hernia. The patient will continue to follow with her primary care physician and medicare biller regarding the management of her paraesophageal hernia. [...] Care Team Description 08/16/2025 Telephone Pulmonology - [address] [place] [address] Belkis Pulido MD from Last 3 Months Surgical History Surgery Date Site/Laterality Comments BACK SURGERY 10/15/2013; 04/10/2015 PROCEDURE: HISTORICAL BACK SURGERY; COMMENT: L4-5 S1 fusion; L3-4 Fusion OTHER SURGICAL HISTORY 2004 Bilateral PROCEDURE: BREAST PROTHESIS; COMMENT: Breast implants ENDOMETRIAL ABLATION 03/1999 PROCEDURE: [place] ENDOMETRIAL ABLTJ THERMAL W/O HYSTEROSCOPIC GUID Medical [...] 8:30 AM EST Office Visit Pulmonology - [address] [place] [address] Belkis Pulido MD [facility] [place] [address] Health Maintenance Due Date Last [...] age to complete this topic Insurance MEDICARE [facility] Care Teams Food Beverage Server Relationship Specialty Start Date End Date Yemi Faith MD [address] PCP - General Internal Medicine 01/03/17
== END 2025-09-28 09:16 | disposition home or self-care (01) ==
LOC: HO.HMGAL 09:16
PROVIDERS: PCP Internal Medicine; Visit Provider Registered Nurse Emergency
DX: J30.89 Other allergic rhinitis (principal)
CPT/HCPCS: 95117; 95165

== ENCOUNTER 2025-10-10 10:10 | Outpatient (AMB) | payer MEDICARE, SELFPAY | END 2025-10-10 10:10 | disposition home or self-care (01) | LOC: HO.HMGAL 10:10 | PROVIDERS: PCP Internal Medicine; Visit Provider Registered Nurse Emergency | DX: J30.89 Other allergic rhinitis (principal) | CPT/HCPCS: 95117; 95165 ==

== ENCOUNTER 2025-10-19 13:17 | Outpatient (AMB) | payer MEDICARE, SELFPAY ==
--- OUTSIDE RECORDS SUMMARY | 2025-10-19 17:27 | XMS_ITS | Clinical Summary ---
Author Organization 175 [facility] Address [address] [place] [address] Phone Care Team Providers Care Quality Supervisor Name Role Phone Yemi Faith MD Primary Care Provider [phone] Allergies No known active allergies Medications diphenhydrAMINE (BenadryL) 25 mg capsule Take by mouth as needed Active amLODIPine (NORVASC) 5 mg tablet Take 1 tablet (5 mg total) by mouth 2 (two) times a day. 3 Active aspirin 81 mg EC tablet Take 1 tablet (81 mg total) by mouth 1 (one) time each day. 3 Active atorvastatin (LIPITOR) 80 mg tablet Take 1 tablet (80 mg total) by mouth 1 (one) time each day. 4 Active ipratropium-alb uteroL (Combivent Respimat) 20-100 mcg/actuation inhaler Inhale 1 puff by mouth 4 (four) times a day if needed (dyspnea). 4 Active levothyroxine sodium (TIROSINT) 50 mcg capsule Take by mouth Acti ve metoprolol succinate (TOPROL-XL) 100 mg 24 hr tablet Take 1 tablet (100 mg total) by mouth 1 (one) time each day. Active pantoprazole (PROTONIX) 40 mg EC tablet Take 1 tablet (40 mg total) by mouth 1 (one) time each day. Active sertraline (ZOLOFT) 100 mg tablet Take 1 tablet (100 mg total) by mouth 1 (one) time each day. Active albuterol HFA (PROAIR HFA ; PROVENTIL HFA ; VENTOLIN HFA) 90 mcg/actuation inhaler Inhale 2 puffs by mouth every 6 (six) hours if needed for wheezing or shortness of breath. 1 each 11 5 10/03/20 26 Active Active Problems Problem Noted Date Diagnosed [...] that her primary care physician and her pneumatic tester ([facility]) already know about her paraesophageal hernia. The patient will continue to follow with her primary care physician and pneumatic tester regarding the management of her paraesophageal hernia. [...] for this incidentally noted PFO. Pulmonary hypertension 12/30/2023 Overview (08/16/2024): Last Assessment & Plan: [...] Encounters Date Type Department Care Team Description 10/03/2025 8:30 AM EST Office Visit Pulmonology [address] [place] [address] Belkis Pulido MD SIXTO on CPAP (Primary Dx); Chronic bronchitis, unspecified chronic bronchitis type (CMS/HCC V24, CMS/HCC V28) 08/16/2025 Telephone Pulmonology [facility] 175 [facility] 200 [place] [address] Belkis Pulido MD from Last [...] on file Sexual Orientation Not on file Last Filed Vital Signs Vital Sign Reading Time Taken Comments Blood Pressure 149/79 10/03/2025 8:14 AM EST Pulse 75 10/03/2025 8:14 AM EST Temperature 35.6 C (96 F) 03/25/2025 8:34 AM EDT Respiratory Rate 16 03/25/2025 8:34 AM EDT Oxygen Saturation 95% 10/03/2025 8:14 AM EST Inhaled Oxygen Concentration - - Weight 65.9 kg (145 lb 3.2 oz) 10/03/2025 8:14 A M EST Height 154.9 cm (5' 1 ) 10/03/2025 8:14 AM EST Body Mass Index 27.44 10/03/2025 8:14 AM EST Plan of Treatment Upcoming Encounters Date Type Department Care Team (Late st Contact Info) Description 04/03/2026 8:45 AM EDT Office Visit Pulmonology - [address] [place] [address] Belkis Pulido MD [address] [place] [phone] Health Maintenance Due Date Last Done Comments DTaP,Tdap,and Td Vaccines (1 - Tdap) 1964 Cholesterol Screening (Lipid Panel) 12/02/2023 Falls Risk Assessment 12/02/2023 Hepatitis C Screening 12/02/2023 Medicare Annual Wellness Visit 12/02/2023 Osteoporosis Screening (Bone Density Screening) 12/02/2023 Social Influencers of Health Screening 12/02/2023 Hypertension/CHF/CAD Annual BMP Blood Test 12/05/2023 Depression Screening 11/03/2024 COVID-19 Vaccine ( season) 2025 06/09/2025, 07/07/2024, 07/22/2023, Additional history exists Zoster Vaccines Completed 07/13/2018, 04/19/2018 Pneumococcal Vaccine: 50+ Years Completed 06/04/2021, 09/09/2018 RSV Immunization Adult Patients Completed 10/23/2023 Influenza Vaccine Completed 06/09/2025, , 07/22/2023, Additional history exists HIB Vaccines Aged Out No longer eligi [...] age to complete this topic Insurance MEDICARE [facility] Care Teams Quality Supervisor Relationship Specialty Start Date End Date Yemi Faith MD [address] PCP - General Internal Medicine 01/03/17
== END 2025-10-19 13:20 | disposition home or self-care (01) ==
LOC: HO.HMGAL 13:17
PROVIDERS: PCP Internal Medicine; Visit Provider Registered Nurse Emergency
DX: J30.89 Other allergic rhinitis (principal)
CPT/HCPCS: 95117; 95165